=== PATIENT | female | born 1990 | race Caucasian/White ===

== ENCOUNTER 2018-08-31 12:21 | Inpatient (IN) | payer BC, MEDICAID ==
--- NOTE | 2018-08-31 14:35 | HP ---
General Information - Reason for Visit gestational hypertension - General Information Maternal Age: 27 Grav: 1 Para: 0 SAB: 0 IEA: 0 Estimated Due Date: 09/07/18 Determined By: LMP Maternal Blood Type and Rh: O Positive - Results this Serology/RPR Result: Non-Reactive Rubella Result: Immune HBsAg Result: Negative HIV Result: Negative GBS Culture Result: Negative Past Medical History Delivery History: See Records Pertinent Past Medical History: Non-Contributory Pertinent Past Surgical History: See Records Pertinent Family History: Non-Contributory - Antepartal Records Antepartal Records: Reviewed, Uncomplicated Review of Systems Constitutional: Comfortable CV Complaint: No Gastrointestinal: No Nausea/Vomiting Genitourinary: No Bleeding, No Leaking Fluid Musculoskeletal: No Complaint Neurological: No Headache, No Visual Changes Movement: Normal Exam Allergies/Adverse Reactions: Allergies MS Sulfa Drugs [Sulfa Drugs] Allergy (Unknown, Verified 08/31/18 12:57) See Comment Happened when baby - Measurements Height: 5 ft 7 in Weight: 270 lb Weight in lbs: 270.807505 Body Mass Index (BMI): 42.3 Pre- Weight: 235 lb Weight Gained This : 35 lbs and 0 ozs - Exam CVA: No CVA Tenderness Extremities: No Edema Heart: Normal Rhythm/Heart Sounds HEENT: No Significant Findings Lungs: Clear Bilaterally Reflexes: DTR 2+ Targeted Exam Findings See L&D Outpatient Visit Provider Note for Findings: N/A - ultrasound at bedside shows vertex presenting Cervical Exam: Closed Effacement: Thick Station: High Presenting Part: Vertex Membrane Status: Intact EFM Findings - External Monitor Findings Baseline Heart Rate: 150 External Monitor Findings: Accelerations Present, Variability Moderate Contractions: None Assessment/Plan - Assessment gestational hypertension - Obstetrical Risk Factors Obstetrical Risk Factors: Gestational Hypertension - Plan Plan: Cervical Ripening - will check labs and start with oral misoprostol / unable to place valera balloon
[2018-08-31 14:57] LABS: ABS Basophils 0.1 10^3/ul (0-0.2); ABS Eosinophils 0.1 10^3/ul (0-0.6); ABS Lymphocytes 1.8 10^3/ul (1.0-4.8); ABS Monocytes 0.8 10^3/ul (0-0.8); ABS Neutrophils 8.5 10^3/ul (1.5-7.7); ABS Nucleated RBC 0 10^3/ul; Eosinophil % 0.7 % (0-6); Hematocrit 37 % (35-47); Hemoglobin 12.7 g/dl (12.0-16.0); Lymphocyte % 16.2 % (25-47); Mean Corpuscular HGB Conc 34 g/dl (31-36); Mean Corpuscular Hemoglobin 31 pg (27-31); Mean Corpuscular Volume 91 fL (80-97); Mean Platelet Volume 10.4 um3 (7.4-10.4); Nucleated Red Blood Cells % 0.1; Platelet Count 159 10^3/ul (150-450); Red Blood Count 4.08 10^6/ul (4.00-5.40); Red Cell Distribution Width 14 % (10.5-15); White Blood Count 11.2 10^3/ul (3.5-10.8)
[2018-08-31] MEDS ORDERED: Misoprostol TAB* 100 MCG PO SCH (15:00)
[2018-08-31] MEDS: Misoprostol TAB* 100 MCG PO ONE (15:01)
[2018-08-31 15:12] LABS: EGFR Non-African American 129.2 (>60); Uric Acid 5.9 mg/dL (2.3-6.6)
[2018-08-31 16:43] LABS: Urine Appearance Clear; Urine Blood Negative (Negative); Urine Color Yellow; Urine Ketones Negative (Negative); Urine Protein Negative (Negative); Urine Urobilinogen Negative (Negative)
[2018-08-31] MEDS ORDERED: Dinoprostone* 10 MG VAG.SUPP VAGINAL ONE (17:26)
[2018-09-01] MEDS ORDERED: Misoprostol TAB* 100 MCG PO ONE (05:35)
[2018-09-01] MEDS ORDERED: Misoprostol TAB* 100 MCG VAGINAL PRN (11:00)
[2018-09-01] MEDS ORDERED: Misoprostol TAB* 100 MCG ONE (11:11)
[2018-09-01] MEDS ORDERED: Nalbuphine* 10 MG/ML 1 ML VIAL IV PRN (22:30)
[2018-09-01] MEDS ORDERED: Promethazine INJ(RESTRICTED)* 25 MG/ML 1 ML VIAL IV PRN (22:31)
[2018-09-01] MEDS ORDERED: Buffered Lidocaine 0.9% SYRIN* 5 ML/SYR SYRINGE ONE (22:38)
[2018-09-01] MEDS ORDERED: Oxytocin in LR* 20 UNITS/1,000 ML BAG IVPB SCH (23:00)
[2018-09-01] MEDS ORDERED: Oxytocin in LR* 20 UNITS/1,000 ML BAG IVPB ONE (23:17)
[2018-09-01] MEDS ORDERED: Nalbuphine* 10 MG/ML 1 ML VIAL ONE (23:22)
[2018-09-01] MEDS ORDERED: Promethazine INJ(RESTRICTED)* 25 MG/ML 1 ML VIAL ONE (23:22)
[2018-09-02 00:55] LABS: Hematocrit 40 % (35-47); Hemoglobin 13.4 g/dl (12.0-16.0); Mean Corpuscular HGB Conc 34 g/dl (31-36); Mean Corpuscular Hemoglobin 31 pg (27-31); Mean Corpuscular Volume 91 fL (80-97); Mean Platelet Volume 11.4 um3 (7.4-10.4); Platelet Count 185 10^3/ul (150-450); Red Blood Count 4.34 10^6/ul (4.00-5.40); Red Cell Distribution Width 14 % (10.5-15)
[2018-09-02] MEDS ORDERED: OBEPIDURAL* 250 ML EPIDURAL ONE (08:49)
[2018-09-02] MEDS ORDERED: Phenylephrine IV* 40 MCG/ML 10 ML SYRINGE ONE ×2 (08:57→14:57)
[2018-09-02] MEDS ORDERED: Phenylephrine IV* 40 MCG/ML 10 ML SYRINGE IV PUSH PRN (09:29)
[2018-09-02] MEDS ORDERED: Famotidine TAB* 20 MG PO PRN (09:29)
[2018-09-02] MEDS ORDERED: Sodium Citrate/Citric Acid* 15 ML UDC PO PRN (09:29)
[2018-09-02] MEDS ORDERED: Famotidine IV* 10 MG/ML 2 ML (20 mg) IV PRN (09:29)
[2018-09-02] MEDS ORDERED: OBEPIDURAL* 250 ML EPIDURAL SCH (10:00)
[2018-09-02] MEDS ORDERED: ceFOXitin 2 GM IVPREMIX* 2 GM/50 ML BAG ONE (12:45)
[2018-09-02] MEDS ORDERED: ceFOXitin 2 GM IVPREMIX* 2 GM/50 ML BAG IVPB ONE (13:29)
[2018-09-02] MEDS ORDERED: EPINEPHrine SYR 0.1MG/ML* SYRINGE ONE (13:36)
[2018-09-02] MEDS ORDERED: Lidocaine 2% PF* 10 ML AMP ONE ×2 (13:36→14:57)
[2018-09-02] MEDS ORDERED: Sodium Chloride 0.9%* 10 ML ONE (13:41)
[2018-09-02] MEDS ORDERED: Bupivacaine-MPF SPINAL* 7.5 MG/ML - 2ML AMP ONE (13:53)
[2018-09-02] MEDS ORDERED: Morphine PF AMP (0.5MG/ML)* 5 MG/10 ML AMP ONE (13:53)
[2018-09-02] MEDS ORDERED: fentaNYL* 50 MCG/ML 2 ML VIAL (100 MCG VIAL) ONE (13:54)
[2018-09-02] MEDS ORDERED: Carboprost Tromethamine* 250 MCG INJ ONE (14:29)
[2018-09-02] MEDS ORDERED: Ondansetron INJ* 2 MG/ML VIAL IV PRN (14:40)
[2018-09-02] MEDS ORDERED: diPHENhydraMINE IV* 50 MG/ML 1 ml VIAL (BENADRYL) IV PRN (14:40)
[2018-09-02] MEDS ORDERED: Acetaminophen TAB* 325 MG PO PRN ×2 (14:40→15:03)
[2018-09-02] MEDS ORDERED: oxyCODONE/Acetamin 5/325 MG* TAB PO PRN (14:40)
[2018-09-02] MEDS ORDERED: Naloxone* 0.4 MG/ML 1 ML VIAL IV PRN (14:40)
[2018-09-02] MEDS ORDERED: oxyCODONE TAB* 5 MG TAB PO PRN (14:40)
[2018-09-02] MEDS ORDERED: Metoclopramide IV* 5 MG/ML 2 ML VIAL IV PRN (14:40)
[2018-09-02] MEDS ORDERED: Dibucaine 1% 28.35 GM TUBE PR PRN (15:03)
[2018-09-02] MEDS ORDERED: Zolpidem TAB* 5 MG PO PRN (15:03)
[2018-09-02] MEDS ORDERED: Witch Hazel PAD* JAR TOPICAL PRN (15:03)
[2018-09-02] MEDS ORDERED: Glycerin ADULT SUPP PR PRN (15:03)
[2018-09-02] MEDS ORDERED: Oxytocin in LR* 20 UNITS/1,000 ML BAG IVPB SCH (16:00)
[2018-09-02] MEDS: Ketorolac INJ* 30 MG/ML 1 ML VIAL IV PRN ×2 (17:16→23:23)
[2018-09-02] MEDS: Simethicone TAB* 80 MG TAB.CHEW PO SCH ×2 (18:29→21:24)
[2018-09-02] MEDS: Docusate CAP* 100 MG PO SCH (21:24)
[2018-09-03] MEDS ORDERED: oxyCODONE/Acetamin 5/325 MG* TAB PO PRN (00:12)
[2018-09-03] MEDS: Ketorolac INJ* 30 MG/ML 1 ML VIAL IV PRN (06:27)
--- NOTE | 2018-09-03 06:29 | OP ---
AMENDED REPORT TO CORRECT DATE OF OPERATION DATE OF OPERATION: 09/02/18 - ROOM #102 DATE OF : [birth year] SURGEON: Luis Cameron MD BECK TENDER: Mecca Ghosh CNM ANESTHESIA: Spinal. PRE-OP DIAGNOSES: Failed induction, gestational hypertension, arrest of dilation. POST-OP DIAGNOSES: Failed induction, gestational hypertension, arrest of dilation. OPERATIVE PROCEDURE: Low transverse section. ESTIMATED BLOOD LOSS: 600 cc. FINDINGS: This is a 27-year-old 1, para 0 who was admitted on Wednesday for induction started with the Cervidil due to the vertex being high. Subsequently, a Ackerman catheter was placed in the cervix for continued dilation and Pitocin was started and she progressed up to 4 cm, at time she ruptured and the Ackerman fell out. She did not progress beyond that. After several hours of this, a IUPC was placed and she was found to have 210 Harvard units in the 10 minute window; and, because this had been going on for over 4 hours, decision made to proceed with section. At the time of , she had a viable female with Apgars of 8 and 9, weight of 5 pounds 11 ounces. There was a nuchal cord x2. Normal fallopian tubes and ovaries in appearance. DESCRIPTION OF PROCEDURE: The patient identified, procedure identified as low transverse section. The patient was taken to the operating room, prepped and draped in the usual fashion in the left lateral recumbent position under spinal anesthesia. A Pfannenstiel incision was made to the abdomen and carried down through fat, fascia and peritoneum. A transverse incision was made in the lower uterine segment and extended laterally using the bandage scissors. The above was initially attempted to be delivered without the vacuum but did not come through easily, hence the vacuum was applied and easily pulled out the baby. The baby was delivered without any difficulty. Cord was doubly clamped and cut, and the infant was handed to the awaiting palletiser operator. Cord blood was obtained, placenta delivered spontaneously. There was a small gap in the back side of the uterus. This does not appear to be bleeding. The gap was just in the muscle not deep. The uterus was wiped out with wet lap sponge. The uterine incision was then closed using 0 Polysorb in a running fashion and a second layer was used to imbricate the first layer. Good hemostasis was verified. The uterus was placed back in the abdominal cavity. The gutters were wiped out and the peritoneum was found to be hemostatic. The peritoneum was then closed using 3-0 Polysorb in running fashion. Good hemostasis was achieved in the subrectus layer, the fascia was closed using 0 Polysorb in a running fashion. Good hemostasis achieved in the subcu. The skin was closed with 4-0 Monocryl in a subcuticular fashion. All sponge, instrument counts were correct. [id number]/[facility] #: [id number] [facility] HOSPITALRuddy
[2018-09-03 06:49] LABS: ABS Basophils 0 10^3/ul (0-0.2); ABS Eosinophils 0.1 10^3/ul (0-0.6); ABS Lymphocytes 1.3 10^3/ul (1.0-4.8); ABS Neutrophils 9.7 10^3/ul (1.5-7.7); ABS Nucleated RBC 0 10^3/ul; Eosinophil % 0.5 % (0-6); Hematocrit 34 % (35-47); Hemoglobin 11.3 g/dl (12.0-16.0); Lymphocyte % 10.7 % (25-47); Mean Corpuscular HGB Conc 34 g/dl (31-36); Mean Corpuscular Hemoglobin 31 pg (27-31); Mean Corpuscular Volume 92 fL (80-97); Mean Platelet Volume 10.4 um3 (7.4-10.4); Nucleated Red Blood Cells % 0.1; Platelet Count 136 10^3/ul (150-450); Red Blood Count 3.65 10^6/ul (4.00-5.40); Red Cell Distribution Width 14 % (10.5-15); White Blood Count 12.1 10^3/ul (3.5-10.8)
[2018-09-03] MEDS ORDERED: Ferrous Gluconate TAB* 324 MG TAB PO SCH (09:00)
[2018-09-03] MEDS: Simethicone TAB* 80 MG TAB.CHEW PO SCH ×4 (09:11→21:03)
[2018-09-03] MEDS: Docusate CAP* 100 MG PO SCH ×3 (09:11→21:02)
[2018-09-03] MEDS: Ibuprofen TAB* 600 MG PO PRN ×2 (12:27→18:26)
[2018-09-03] MEDS: oxyCODONE/Acetamin 5/325 MG* TAB PO PRN ×2 (14:11→21:03)
[2018-09-04] MEDS: Ibuprofen TAB* 600 MG PO PRN ×4 (00:32→19:12)
[2018-09-04] MEDS: Docusate CAP* 100 MG PO SCH ×3 (09:31→20:38)
[2018-09-04] MEDS: Simethicone TAB* 80 MG TAB.CHEW PO SCH ×3 (09:31→20:37)
[2018-09-04] MEDS: oxyCODONE/Acetamin 5/325 MG* TAB PO PRN (22:16)
[2018-09-05] MEDS: Ibuprofen TAB* 600 MG PO PRN ×2 (05:15→11:25)
[2018-09-05] MEDS: oxyCODONE/Acetamin 5/325 MG* TAB PO PRN ×2 (05:15→11:24)
[2018-09-05 08:15] VITALS: BP 134/88
[2018-09-05] MEDS: Simethicone TAB* 80 MG TAB.CHEW PO SCH (08:19)
[2018-09-05] MEDS: Docusate CAP* 100 MG PO SCH (09:18)
--- NOTE | 2018-09-05 09:55 | PTEDU ---
Patient Name: WILFREDO BLCOK WILFREDO BLOCK selected video: Never Ever Shake a Baby to view on 09/05/2018 at 9:54:47 AM [id number]
== END 2018-09-05 11:45 | disposition home or self-care (01) | DRG 540 ==
LOC: MCHOBOUT 12:21 → MCHOB 14:17
PROVIDERS: ADMIT Obstetrics & Gynecology; ATTEND Obstetrics & Gynecology
PROC: 3E033VJ Introduction of Other Hormone into Peripheral Vein, Percutaneous Approach (ICD-10-PCS; 2018-09-02)
PROC: 10D00Z1 Extraction of Products of Conception, Low, Open Approach (ICD-10-PCS; principal; 2018-09-02 13:50)
DX: O62.0 Primary inadequate contractions (principal); O13.4 Gestational [pregnancy-induced] hypertension without significant proteinuria, complicating childbirth; O69.81X0 Labor and delivery complicated by cord around neck, without compression, not applicable or unspecified; Z3A.39 39 weeks gestation of pregnancy; Z37.0 Single live birth
CPT/HCPCS: 36415; 80053; 81003; 84550; 85025; 85027; 86850; 86900; 86901; 87641; A9270-GY; J0171; J0694; J1885; J2001; J2300; J2550; J3010; S0191

== ENCOUNTER 2019-01-19 11:53 | Emergency (ER) | payer BC, MEDICAID ==
[2019-01-19] MEDS ORDERED: NS 0.9% 1000 ML** 1,000 ML IV ONE (12:40)
[2019-01-19] MEDS ORDERED: Acetaminophen TAB* 325 MG PO ONE (12:43)
[2019-01-19 14:13] LABS: ABS Basophils 0 10^3/ul (0-0.2); ABS Eosinophils 0.2 10^3/ul (0-0.6); ABS Lymphocytes 1.9 10^3/ul (1.0-4.8); ABS Monocytes 0.6 10^3/ul (0-0.8); ABS Neutrophils 4.5 10^3/ul (1.5-7.7); ABS Nucleated RBC 0 10^3/ul; Eosinophil % 2.4 %; Hematocrit 42 % (35-47); Hemoglobin 14.2 g/dl (12.0-16.0); Lymphocyte % 25.8 %; Mean Corpuscular HGB Conc 34 g/dl (31-36); Mean Corpuscular Hemoglobin 30 pg (27-31); Mean Corpuscular Volume 87 fL (80-97); Mean Platelet Volume 8.7 fL (7.4-10.4); Nucleated Red Blood Cells % 0.3; Platelet Count 300 10^3/ul (150-450); Red Blood Count 4.78 10^6/ul (4.00-5.40); Red Cell Distribution Width 13 % (10.5-15); White Blood Count 7.2 10^3/ul (3.5-10.8)
[2019-01-19 14:21] LABS: Activated Partial Thrombo Time 32.5 seconds (26.0-36.3); INR 1.05 (0.77-1.02)
[2019-01-19 14:33] LABS: ALT 9 U/L (7-52); AST 14 U/L (13-39); Albumin 4.5 g/dL (3.2-5.2); Albumin/Globulin Ratio 1.4 (1-3); Alkaline Phosphatase 92 U/L (34-104); Anion Gap 6 mmol/L (2-11); BUN/Creatinine Ratio 16.7 (8-20); Blood Urea Nitrogen 11 mg/dL (6-24); C Reactive Protein 14.85 mg/L (<8.01); CO2 Carbon Dioxide 26 mmol/L (22-32); Chloride 107 mmol/L (101-111); Creatine Kinase 96 U/L (10-223); EGFR Non-African American 108.3 (>60); Globulin 3.2 g/dL (2-4); Glucose 80 mg/dL (70-100); Potassium 3.6 mmol/L (3.5-5.0); Sodium 139 mmol/L (135-145); Total Protein 7.7 g/dL (6.4-8.9)
[2019-01-19 14:35] LABS: CKMB ng/mL 0.9 ng/mL (0.6-6.3)
[2019-01-19 14:39] LABS: HCG Pregnancy < 0.60 mIU/mL
--- NOTE | 2019-01-19 15:22 | ED ---
Complex/Multi-Sys Presentation - HPI Summary HPI Summary: 28 year old F presenting to [facility] with a chief complaint of right-sided flank pain and right shoulder pain since two days ago. The patient rates the pain 6/ 10 in severity. Symptoms aggravated by deep breathing. Symptoms alleviated by nothing. Patient denies shortness of breath, nausea, decreased appetite, dysuria , BLE edema. Patient has an IUD. She gave 4 months ago. She stopped bleeding 2 weeks ago. She has not traveled recently. - History Of Current Complaint Chief Complaint: EDChestWallPain Time Seen by Provider: 01/19/19 15:14 Hx Obtained From: Patient Onset/Duration: Lasting Days - 2, Still Present Timing: Constant Severity Currently: Moderate Aggravating Factor(s): Deep breathing Alleviating Factor(s): Nothing Associated Signs And Symptoms: Positive: Other - NEGATIVE: shortness of breath, nausea, decreased appetite, dysuria, BLE edema - Allergies/Home Medications Allergies/Adverse Reactions: Allergies Allergy/AdvReac Type Severity Reaction Status Date / Time Sulfa (Sulfonamide Allergy Unknown See Comment Verified 09/01/18 05:11 Antibiotics) PMH/Surg Hx/FS Hx/Imm Hx Previously Healthy: No Endocrine/Hematology History: Denies: Hx Diabetes, Hx Thyroid Disease Cardiovascular History: Denies: Hx Hypertension Respiratory History: Denies: Hx Asthma, Hx Chronic Obstructive Pulmonary Disease (COPD) GI History: Denies: Hx Ulcer Sensory History: Reports: Hx Contacts or Glasses Opthamlomology History: Reports: Hx Contacts or Glasses - Surgical History Surgery Procedure, Year, and Place: 1996 Tonsillectomy Infectious Disease History: No Infectious Disease History: Denies: Hx Clostridium Difficile, Hx Hepatitis, Hx Human Immunodeficiency Virus (HIV), Hx of Known/Suspected MRSA, Hx Shingles, Hx Tuberculosis, Traveled Outside the [place] in Last 30 Days - Family History Known Family History: Positive: Other - grandparents had cancer; brother from cardiomyopathy Negative: Diabetes - Social History Alcohol Use: None Hx Substance Use: No Substance Use Type: Reports: None Hx Tobacco Use: No Smoking Status (MU): Never Smoked Tobacco Have You Smoked in the Last Year: No Review of Systems Negative: Shortness Of Breath Gastrointestinal: Negative - Decreased appetite Positive: Other - right flank pain. Negative: Nausea Negative: dysuria Positive: Other - right shoulder pain. Negative: Edema All Other Systems Reviewed And Are Negative: Yes Physical Exam - Summary Physical Exam Summary: Appearance: The patient is obese in no acute distress and in no acute pain. Skin: The skin is warm and dry and skin color reflects adequate perfusion. HEENT: The head is normocephalic and atraumatic. The pupils are equal and reactive. The conjunctivae are clear and without drainage. Nares are patent and without drainage. Mouth reveals moist mucous membranes and the throat is without erythema and exudate. The external ears are intact. The ear canals are patent and without drainage. The tympanic membranes are intact. Neck: The neck is supple with full range of motion and non-tender. There are no carotid bruits. There is no neck vein distension. Respiratory: Chest is non-tender. Lungs are clear to auscultation and breath sounds are symmetrical and equal. Cardiovascular: Heart is regular rate and rhythm. There is no murmur or rub auscultated. There is no peripheral edema and pulses are symmetrical and equal. Abdomen: The abdomen is soft and non-tender. There are normal bowel sounds heard in all four quadrants and there is no organomegaly palpated. Musculoskeletal: There is no back tenderness noted. Extremities are non-tender with full range of motion. There is good capillary refill. There is no peripheral edema or calf tenderness elicited. Neurological: Patient is alert and oriented to person, place and time. The patient has symmetrical motor strength in all four extremities. Cranial nerves are grossly intact. Deep tendon reflexes are symmetrical and equal in all four extremities. Psychiatric: The patient has an appropriate affect and does not exhibit any anxiety or depression Triage Information Reviewed: Yes Vital Signs On Initial Exam: Initial Vitals Temp Pulse Resp BP Pulse Ox 97.9 F 77 16 137/82 96 01/19/19 11:56 01/19/19 11:56 01/19/19 11:56 01/19/19 11:56 01/19/19 11:56 Vital Signs Reviewed: Yes Diagnostics - Vital Signs Vital Signs Temp Pulse Resp BP Pulse Ox 01/19/19 13:25 98.7 F 71 16 115/78 97 01/19/19 11:56 97.9 F 77 16 137/82 96 - Laboratory Lab Results: Lab Results 01/19/19 01/19/19 01/19/19 Range/Units 13:45 13:45 13:45 WBC 7.2 (3.5-10.8) 10^3/ul RBC 4.78 (4.00-5.40) 10^6/ul Hgb 14.2 (12.0-16.0) g/dl Hct 42 (35-47) % MCV 87 (80-97) fL MCH 30 (27-31) pg MCHC 34 (31-36) g/dl RDW 13 (10.5-15) % Plt Count 300 (150-450) 10^3/ul MPV 8.7 (7.4-10.4) fL Neut % (Auto) 62.3 % Lymph % (Auto) 25.8 % Mckinley % (Auto) 8.9 % Eos % (Auto) 2.4 % Baso % (Auto) 0.6 % Absolute Neuts (auto) 4.5 (1.5-7.7) 10^3/ul Absolute Lymphs (auto) 1.9 (1.0-4.8) 10^3/ul Absolute Monos (auto) 0.6 (0-0.8) 10^3/ul Absolute Eos (auto) 0.2 (0-0.6) 10^3/ul Absolute Basos (auto) 0 (0-0.2) 10^3/ul Absolute Nucleated RBC 0 10^3/ul Nucleated RBC % 0.3 INR (Anticoag Therapy) (0.77-1.02) APTT (26.0-36.3) seconds D-Dimer, Quantitative (Less Than 230) ng/mL Sodium 139 (135-145) mmol/L Potassium 3.6 (3.5-5.0) mmol/L Chloride 107 (101-111) mmol/L Carbon Dioxide 26 (22-32) mmol/L Anion Gap 6 (2-11) mmol/L BUN 11 (6-24) mg/dL Creatinine 0.66 (0.51-0.95) mg/dL Est GFR ( Amer) 131.0 (>60) Est GFR (Non-Af Amer) 108.3 (>60) BUN/Creatinine Ratio 16.7 (8-20) Glucose 80 (70-100) mg/dL Lactic Acid 0.7 (0.5-2.0) mmol/L Calcium 10.0 (8.6-10.3) mg/dL Total Bilirubin 0.40 (0.2-1.0) mg/dL AST 14 (13-39) U/L ALT 9 (7-52) U/L Alkaline Phosphatase 92 (34-104) U/L Total Creatine Kinase 96 (10-223) U/L CK-MB (CK-2) 0.9 (0.6-6.3) ng/mL Troponin I 0.00 (<0.04) ng/mL C-Reactive Protein 14.85 H (<8.01) mg/L Total Protein 7.7 (6.4-8.9) g/dL Albumin 4.5 (3.2-5.2) g/dL Globulin 3.2 (2-4) g/dL Albumin/Globulin Ratio 1.4 (1-3) Beta HCG, Quant < 0.60 mIU/mL 01/19/19 Range/Units 13:45 WBC (3.5-10.8) 10^3/ul RBC (4.00-5.40) 10^6/ul Hgb (12.0-16.0) g/dl Hct (35-47) % MCV (80-97) fL MCH (27-31) pg MCHC (31-36) g/dl RDW (10.5-15) % Plt Count (150-450) 10^3/ul MPV (7.4-10.4) fL Neut % (Auto) % Lymph % (Auto) % Mckinley % (Auto) % Eos % (Auto) % Baso % (Auto) % Absolute Neuts (auto) (1.5-7.7) 10^3/ul Absolute Lymphs (auto) (1.0-4.8) 10^3/ul Absolute Monos (auto) (0-0.8) 10^3/ul Absolute Eos (auto) (0-0.6) 10^3/ul Absolute Basos (auto) (0-0.2) 10^3/ul Absolute Nucleated RBC 10^3/ul Nucleated RBC % INR (Anticoag Therapy) 1.05 H (0.77-1.02) APTT 32.5 (26.0-36.3) seconds D-Dimer, Quantitative 512 H (Less Than 230) ng/mL Sodium (135-145) mmol/L Potassium (3.5-5.0) mmol/L Chloride (101-111) mmol/L Carbon Dioxide (22-32) mmol/L Anion Gap (2-11) mmol/L BUN (6-24) mg/dL Creatinine (0.51-0.95) mg/dL Est GFR ( Amer) (>60) Est GFR (Non-Af Amer) (>60) BUN/Creatinine Ratio (8-20) Glucose (70-100) mg/dL Lactic Acid (0.5-2.0) mmol/L Calcium (8.6-10.3) mg/dL Total Bilirubin (0.2-1.0) mg/dL AST (13-39) U/L ALT (7-52) U/L Alkaline Phosphatase (34-104) U/L Total Creatine Kinase (10-223) U/L CK-MB (CK-2) (0.6-6.3) ng/mL Troponin I (<0.04) ng/mL C-Reactive Protein (<8.01) mg/L Total Protein (6.4-8.9) g/dL Albumin (3.2-5.2) g/dL Globulin (2-4) g/dL Albumin/Globulin Ratio (1-3) Beta HCG, Quant mIU/mL Result Diagrams: 01/19/19 13:45 01/19/19 13:45 Lab Statement: Any lab studies that have been ordered have been reviewed, and results considered in the medical decision making process. - CT Chest CTA CT Interpretation Completed By: Radiologist Summary of CT Findings: 1. No evidence for pulmonary embolism. 2. No evidence for pneumonia. ED physician has reviewed this report. Re-Evaluation - Re-Evaluation First Eval Re-Evaluation Time: 17:24 Comment: Discussed dispo plan with patient. She is agreeable to discharge. Complex Multi-Symp Course/Dx Course Of Treatment: Ms. Márquez presented with 2 days of right-sided chest pain which was pleuritic in nature and getting gradually worse. She denies any injury or trauma or recent viral infections. She has no congestion or URI type symptoms at this time. On exam she was nontender to palpation of her chest wall , she had no CVA T and her abdomen was nontender specifically in the right upper quadrant. Labs were generally within normal limits aside from a very slightly elevated d-dimer. With the pleuritic chest pain and elevated d-dimer a CTA was obtained which was negative for PE. Not sure of the etiology she may be developing a pleurisy I recommended symptomatic treatment and follow-up with her PCP. - Diagnoses Provider Diagnoses: Chest pain Discharge - Sign-Out/Discharge Documenting (check all that apply): Patient Departure - Discharge Patient Received Moderate/Deep Sedation with Procedure: No - Discharge Plan Condition: Stable Disposition: HOME Patient Education Materials: Chest Pain (ED) Referrals: Paula Samayoa MD [Primary Care Provider] - 3 Days Additional Instructions: Follow up with your primary care provider in 3 days. Return to the Emergency Department for new or worsening symptoms. - Billing Disposition and Condition Condition: STABLE Disposition: Home - Attestation Statements Document Initiated by Bereket: Yes Documenting Scribe: Yeni Arce Provider For Whom Bereket is Documenting (Include Credential): Julio César Josue MD Scribe Attestation: Yeni Reyes, scribed for Julio César Josue MD on 01/19/19 at 2015. Scribe Documentation Reviewed: Yes Provider Attestation: The documentation as recorded by the Yeni ann accurately reflects the service I personally performed and the decisions made by me, Julio César Josue MD Status of Scribe Document: Viewed
[2019-01-19] MEDS ORDERED: Iohexol 350* (CONTRAST) 500 ML MDV IV ONE (15:28)
[2019-01-19 16:32] LABS: Influenza A Molecular NEGATIVE (Negative); Influenza B Molecular NEGATIVE (Negative)
[2019-01-19 17:41] VITALS: BP 116/86
[2019-01-19 17:56] LABS: Urine Appearance Clear; Urine Bacteria Absent (Absent); Urine Bilirubin Negative (Negative); Urine Blood 2+ (Negative); Urine Color Yellow; Urine Glucose Negative (Negative); Urine Ketones Negative (Negative); Urine Nitrite Negative (Negative); Urine Protein Negative (Negative); Urine Red Blood Cell Trace(0-2/hpf) (Absent); Urine Specific Gravity > 1.060 (1.010-1.030); Urine Squamous Epithelial Cell Present (Absent); Urine Urobilinogen Negative (Negative); Urine White Blood Cell Trace(0-5/hpf) (Absent)
== END 2019-01-19 17:41 | disposition home or self-care (01) ==
LOC: ED 11:53
DX: R10.84 Generalized abdominal pain (principal); M25.511 Pain in right shoulder; Z88.2 Allergy status to sulfonamides; R07.9 Chest pain, unspecified
CPT/HCPCS: 36415; 71046; 71275; 80053; 81003; 81015; 82550; 82553; 83605; 84484; 84702; 85025; 85379; 85610; 85730; 86140; 87040; 87086; 93005; 96360; 99282; A9270-GY; Q9967

== ENCOUNTER 2019-03-21 21:07 | Emergency (ER) | payer BC ==
[2019-03-21 21:23] VITALS: BP 122/75
--- NOTE | 2019-03-21 21:33 | UC ---
Lower Extremity/Ankle HPI - HPI Summary HPI Summary: 28-year-old woman comes in with a chief complaint of right ankle pain. Patient today rolled it while playing dodgeball. Pain is on the lateral and medial side and also has swelling. Patient is able to ambulate however ambulation increases the pain. Putting up and resting decreases the pain. Patient has injured this ankle 2 other times in the last 2 months. No complaint of any other injuries. - History of Current Complaint Chief Complaint: UCLowerExtremity Stated Complaint: RIGHT ANKLE INJURY Time Seen by Provider: 03/21/19 21:16 Hx Last Menstrual Period: iud Pain Intensity: 4 - Allergies/Home Medications Allergies/Adverse Reactions: Allergies Allergy/AdvReac Type Severity Reaction Status Date / Time Sulfa (Sulfonamide Allergy Unknown See Comment Verified 03/21/19 21:23 Antibiotics) Home Medications: Home Medications Ibuprofen TAB* [Motrin TAB* 600 MG] 400 mg PO Q6H PRN 03/21/19 [History Confirmed 03/21/19] PMH/Surg Hx/FS Hx/Imm Hx Previously Healthy: Yes - Surgical History Surgical History: Yes Surgery Procedure, Year, and Place: 1996 Tonsillectomy. c-sec 2017 - Family History Known Family History: Positive: Other - grandparents had cancer; brother from cardiomyopathy Negative: Diabetes - Social History Alcohol Use: Occasionally Substance Use Type: None Smoking Status (MU): Never Smoked Tobacco Have You Smoked in the Last Year: No - Immunization History Most Recent Influenza Vaccination: 09/04/18 Most Recent Pneumonia Vaccination: none Review of Systems All Other Systems Reviewed And Are Negative: Yes Constitutional: Positive: Negative Skin: Positive: Negative Eyes: Positive: Negative, Diplopia Respiratory: Positive: Negative Cardiovascular: Positive: Negative Gastrointestinal: Positive: Negative Motor: Positive: Negative Neurovascular: Positive: Negative Musculoskeletal: Positive: Other: - see hpi Neurological: Positive: Negative Psychological: Positive: Negative Is Patient Immunocompromised?: No Physical Exam Triage Information Reviewed: Yes Appearance: Well-Appearing, No Pain Distress, Well-Nourished Vital Signs: Initial Vital Signs Temp 98.4 F 03/21/19 21:16 Pulse 112 03/21/19 21:16 Resp 16 03/21/19 21:16 BP 122/75 03/21/19 21:16 Pulse Ox 99 03/21/19 21:16 Vital Signs Reviewed: Yes Eye Exam: Normal Eyes: Positive: Conjunctiva Clear Neck: Positive: Supple Respiratory: Positive: No respiratory distress Musculoskeletal: Positive: Other: - Right ankle is tender to palpation and swollen on the medial and lateral malleolus. Foot is nontender to palpation normal capillary refill no sensation deficit. Achilles tendon is intact and nontender to palpation. Knees full range of motion and strength. Neurological: Positive: Alert, Muscle Tone Normal Psychological: Positive: Age Appropriate Behavior Skin Exam: Normal Lower Extremity Course/Dx - Course Course Of Treatment: I discussed the x-rays with the patient and her partner. I do not see any fractures radiologist reading is pending. Plan is Lukas wrap and gel splint placed here in the urgent care by nursing patient neurovascularly intact after placement of the Lukas wrap and gel splint. We discussed the use crutches patient declined using crutches. She's been taking ibuprofen and ice the ankle and try to rest as best possible. Follow-up with sports medicine if not completely improved. - Differential Dx/Diagnosis Provider Diagnosis: Right ankle sprain Discharge - Sign-Out/Discharge Documenting (check all that apply): Patient Departure All imaging exams completed and their final reports reviewed: No - Discharge Plan Condition: Stable Disposition: HOME Patient Education Materials: Ankle Sprain (ED) Referrals: Paula Samayoa MD [Primary Care Provider] - [facility] [Provider Group] Additional Instructions: FOLLOW UP WITH SPORTS MEDICINE IF NOT COMPLETELY IMPROVED. GET REEVALUATED SOONER IF YOUR CONDITION WORSENS OR ANY QUESTIONS OR CONCERNS. - Billing Disposition and Condition Condition: STABLE Disposition: Home
--- NOTE | 2019-03-22 10:01 | UC ---
- Progress Note Progress Note: Patient Name: WILFREDO BLOCK Medical Record#: [id number] Ordering Physician: Jarett Tai MD Acct.#: [id number] : 1990 Age: 28 Sex: F Location: [facility] Exam Date: 03/21/192126 ADM Status: [facility] ER Order Information: ANKLE RIGHT 3+VWS Accession Number: [id number] CPT: 56775 HISTORY: rt ankle pain s/p trauma . COMPARISONS: None relevant available at the time of dictation. VIEWS: 3, Frontal, lateral, and oblique views of the right ankle FINDINGS: BONE DENSITY: Normal. BONES: There is no displaced fracture. JOINTS: There is no arthropathy. ALIGNMENT: There is no dislocation. SOFT TISSUES: There is circumferential soft tissue swelling. OTHER FINDINGS: None. IMPRESSION: SOFT TISSUE SWELLING. NO ACUTE OSSEOUS INJURY. IF SYMPTOMS PERSIST, RECOMMEND REPEAT IMAGING. <Electronically signed by Lencho Whitmore MD in OV> 03/22/19746 Dictated By: Lencho Whitmore MD Dictated Date/Time: 03/22/19746 Transcribed Date/Time: 03/22/19744 Copy to: CC:Paula Samayoa MD; Jarett Tai MD Imaging - [facility] Imaging [facility] Urgent [facility] [address] [place] [address] ph ([phone]) ph ([phone]) ph ([phone]) This report is only to be considered final once signed by the Provider(s) as displayed in the "<Electronically Signed by >" field (s). Absence of a signature indicates the report is in a draft status and still needs to be finalized. In the event this document was created by someone other than the signing Provider, the individual initiating the document will be listed in the "Entered by:" or "Dictated by:" whyte. 1 of 1 Course/Dx - Diagnoses Provider Diagnoses: Right ankle sprain Discharge - Sign-Out/Discharge Documenting (check all that apply): Post-Discharge Follow Up All imaging exams completed and their final reports reviewed: Yes - Discharge Plan Condition: Stable Disposition: HOME Patient Education Materials: Ankle Sprain (ED) Referrals: [facility] [Provider Group] Paula Samayoa MD [Primary Care Provider] - Additional Instructions: FOLLOW UP WITH SPORTS MEDICINE IF NOT COMPLETELY IMPROVED. GET REEVALUATED SOONER IF YOUR CONDITION WORSENS OR ANY QUESTIONS OR CONCERNS. - Billing Disposition and Condition Condition: STABLE Disposition: Home
== END 2019-03-21 21:50 | disposition home or self-care (01) ==
LOC: UCCORT 21:07
DX: S93.401A Sprain of unspecified ligament of right ankle, initial encounter (principal); Z88.2 Allergy status to sulfonamides; X58.XXXA Exposure to other specified factors, initial encounter; Y93.6A Activity, physical games generally associated with school recess, summer camp and children; Y92.9 Unspecified place or not applicable
CPT/HCPCS: 99213; G0463